=== PATIENT | female | born 1975 | race African-American/Black ===

== ENCOUNTER → 2016-08-25 | Outpatient (CLI) | payer BC ==
[~2016-08-25] MED LIST: ASPIRIN-LOW81 MG ORAL; DICLOFENAC SODI25 MG ORAL; FISH OIL CAP1000 MG ORAL; PRENATAL FORMU1 EAC3 PO; [UNRECOGNIZED DRUG - OTHER] ORAL
--- NOTE | 2016-08-25 16:11 | Diagnostic Imaging Report ---
Indication: SCREEN Technique: Bilateral Craniocaudal and mediolateral oblique views were obtained. Comparison: 08/12/2015 Findings: The breasts are heterogeneously dense, which may obscure small masses. No parenchymal asymmetry nor architectural distortion. There are benign calcifications on the left. There is a 6 mm focal asymmetry in the upper-outer left breast, equivocally is a previously but more conspicuous currently. There is a 12 mm ovoid asymmetry in the deep right breast on the oblique view only, likewise equivocally evident previously, more conspicuous currently. No skin thickening nor nipple retraction. No axillary adenopathy. . Impression: Asymmetries in the upper-outer left breast, posterior right breast, as described. Further evaluation with spot compression mammography and ultrasound recommended. BI-RADS category zero-needs additional imaging evaluation. Breast density BI-RADS type C-heterogeneously dense breasts, which may obscure small masses
== END | disposition home or self-care (01) ==
LOC: MAMMO 10:02
DX: Z12.31 Encounter for screening mammogram for malignant neoplasm of breast (principal); N64.89 Other specified disorders of breast
CPT/HCPCS: 77067